=== PATIENT | male | born 1990 | race Caucasian/White ===

== ENCOUNTER 2022-09-11 17:34 | Emergency (ER) | payer MEDICARE, MEDICAID, SELFPAY ==
[2022-09-11 17:50] VITALS: BP 120/70; PULSE 71; RESP 18; TEMP 37.1; O2SAT 98; BMI 25.4
--- NOTE | 2022-09-11 17:54 | XR_ITS ---
PROCEDURE INFORMATION: Exam: XR Right Tibia and Fibula Exam date and time: 09/11/2022 6:11 PM Age: 32 years old Clinical indication: Injury or trauma; Fall; Blunt trauma; Patient HX: Fell off a small table injuring right lower leg. Abrasion over anterior mid tibia area. Ambulatory to radiology. ; Additional info: Fell off of a table TECHNIQUE: Imaging protocol: Radiologic exam of the right tibia and fibula. Views: 2 views. COMPARISON: No relevant prior studies available. FINDINGS: Bones/joints: No visible fracture or dislocation. Soft tissues: No radiopaque foreign body IMPRESSION: No visible fracture or dislocation.
--- NOTE | 2022-09-11 18:37 | EXP.UTC ---
Discharge Plan Disposition Patient Disposition: Home, Self-Care Condition: Good Referrals Follow up/Referrals: Anel Dewitt APRN [Primary Care Provider] - See instructions Activity Restrictions/Add. Instructions Additional Instructions/Restrictions: *weight bearing as tolerated *RICE, Rest the extremity, Ice 15-20 minutes 3-4 times daily, Compress- wear the mike wrap as discussed as much as possible to help reduce swelling and pain, Elevate the extremity when at rest *Mike wrap is for support and help control swelling, use it except in the shower. Be sure that is not to tight but not to loose either *Elevate when resting? *Ibuprofen 600-800mg every 6-8 hours as needed for pain an inflammation. If need something more can take Tylenol in between doses of Ibuprofen to help Immediately follow up with your family doctor for new or worsening of symptoms, or no noticeable improvement over the next 3-5 days Clinical Impressions Clinical Impression: Contusion of lower leg Qualifiers: Encounter type: initial encounter Laterality: right Qualified Code(s): S80.11XA - Contusion of right lower leg, initial encounter Instructions Patient Instructions: How To Perform RICE (Rest, Ice, Compress, Elevate) Discharge ED Provider: Tiffanie Coker [facility] [place] General Stated complaint: AO 09/11@1630 injured R ankle Mode of Arrival: Ambulatory Source of Information: Patient Limitations: No Limitations Time Seen by Provider: 09/11/22 18:37 Description of Symptoms (Recalled from Triage Doc. by RN): PATIENT C/O RIGHT SANTOS PAIN AFTER FALLING OFF OF A TABLE TODAY HEENT Symptoms (Recalled from RN notes): No Resp Symptoms (Recalled from RN notes): No Skin Symptoms (Recalled from RN notes): No MS Symptoms (Recalled from RN notes): Yes Functional Status (Recalled from RN notes): WNL History of Present Illness Provider Complaint: Patient state that he was standing on table hanging a curtain when he slipped and fell and hit the front of his lower leg on the table States he has a scratch on his lower leg and feels like he may have a knot there and some swelling so he came in to get it checked Related Data Allergies Allergy/AdvReac Type Severity Reaction Status Date / Time No Known Allergies Allergy Verified 06/17/19 18:25 Worker's Comp Is this a Worker's Comp case?: No PFSH [facility] Disclaimer: The information contained in this section may have been updated after the patient was seen, as this information can be updated by other users. Social History Smoking Status: Unknown if ever smoked alcohol intake: never current occupational status: unemployed Travel in the last 8 weeks: None ROS Obtained: Yes All systems reviewed & no additional complaints except as documented and Yes Systems reviewed as appropriate & no additional complaints except as documented Constitutional Constitutional: Reports system reviewed and no additional complaints, except as documented and Reports as per HPI ENT Ears, Nose, Mouth, and Throat: Reports system reviewed and no additional complaints, except as documented and Reports as per HPI Cardiovascular Cardiovascular: Reports system reviewed and no additional complaints, except as documented and Reports as per HPI Respiratory Respiratory: Reports system reviewed and no additional complaints, except as documented and Reports as per HPI Musculoskeletal Musculoskeletal: Reports system reviewed and no additional complaints, except as documented and Reports as per HPI Comments: pain, swelling and abrasion to santos area on right lower leg Integumentary/Breasts Skin/Breast: Reports system reviewed and no additional complaints, except as documented and Reports as per HPI Physical Exam General General appearance: alert and in no apparent distress Respiratory Respiratory exam: Present normal lung sounds bilaterally; Absent respiratory distress or wheezes Cardiovascular Cardiovascular exam: Present regular rate, normal rhyt
[2022-09-11 19:25] VITALS: BP 120/70; PULSE 71; RESP 18; TEMP 37.1; O2SAT 98
== END 2022-09-11 19:29 | disposition home or self-care (01) ==
PROVIDERS: Emergency Provider Nurse Practitioner; PCP Nurse Practitioner
DX: S80.11XA Contusion of right lower leg, initial encounter (principal); W08.XXXA Fall from other furniture, initial encounter
CPT/HCPCS: 73590; 99204; 99212; G0463